=== PATIENT | female | born 1980 | race Caucasian/White ===

== ENCOUNTER 2018-04-05 08:52 | Day surgery (SDC) | payer BC ==
[~2018-04-05 08:52] MED LIST: Lactated Ringers 1,000 ML IV SCH
[2018-04-05] MEDS ORDERED: Acetaminophen 1,000 MG in Premix Bag 1 BAG IV ONE (09:13)
[2018-04-05] MEDS ORDERED: fentaNYL 100 MCG/2 ML SDV ONE (09:18)
[2018-04-05] MEDS ORDERED: Propofol 200 MG/20 ML SDV ONE (09:18)
[2018-04-05] MEDS ORDERED: Midazolam 1 MG/ML 2 ML SDV ONE (09:18)
[2018-04-05] MEDS ORDERED: Lidocaine 2% 100 MG/5 ML Syringe ONE (09:19)
[2018-04-05] MEDS ORDERED: Ketorolac 30 MG/ML SDV ONE (09:19)
[2018-04-05] MEDS ORDERED: Esmolol 100 MG/10 ML SDV ONE (09:19)
[2018-04-05] MEDS ORDERED: Ondansetron 4 MG/2 ML SDV ONE (09:19)
[2018-04-05] MEDS ORDERED: Bupivacaine 0.5%/EPINEPHrine 1:200,000 30 ML SDV ONE (10:37)
[2018-04-05] MEDS ORDERED: ceFAZolin 1 GM Vial ONE (10:55)
[2018-04-05] MEDS ORDERED: Bupivacaine 0.5%/EPINEPHrine 1:200,000 30 ML SDV INFILT ONE ×2 (11:01)
[2018-04-05] MEDS ORDERED: Morphine 2 MG/ML Syringe IVPUSH PRN (12:05)
[2018-04-05] MEDS ORDERED: Acetaminophen/HYDROcodone 325-5 MG Tab PO PRN (12:07)
--- NOTE | 2018-04-05 13:42 | OR ---
PREOP DIAGNOSIS: Umbilical hernia. POSTOP DIAGNOSIS: Umbilical hernia. PROCEDURE PERFORMED: Repair of umbilical hernia. INDICATION: The patient is a 37-year-old female with history of an umbilical hernia, who presents for repair at this time. PROCEDURE DETAILS: Procedure is done in the operating room. General anesthesia administered. The abdomen was prepped and draped in a sterile manner. A 15 blade was used to make a supraumbilical incision. Direct dissection was done down to the fascia and a total of 2 hernia defects were found. The hernia sac was dissected free from both back to the level of fascia, truncated at the fascia level. I opened the 2 hernia defects into one, making one slightly larger defect. I dissected the preperitoneal space in each direction with cautery, placed the 4.3 cm Ventralex patch posterior to the fascia in the preperitoneal space. The 2 tabs were sutured, one superiorly and one inferiorly with 0 nurolon U stitches. The fascia was then reapproximated over the mesh with 0 Ethibond interrupted sutures. Umbilical skin was closed with 3-0 Vicryl interrupted sutures. Skin was closed with running 4-0 Vicryl subcuticular suture and Dermabond. The patient was brought to PACU postop and will be sent home later today. BKD: 04/05/2018 11:49:54 MODL: 04/05/2018 13:32:03 /[id number]
== END 2018-04-05 14:30 | disposition home or self-care (01) ==
LOC: VM.SDS 08:52
PROVIDERS: ATTEND Surgery
DX: K42.9 Umbilical hernia without obstruction or gangrene (principal)
CPT/HCPCS: 81025; A9270-GY; C1781; J0131; J0690; J1885; J2001; J2250; J2270; J2405; J2704; J3010; J3490; J7120

== ENCOUNTER 2019-07-02 09:28 | Emergency (ER) | payer BC, OTHER, SELFPAY ==
[2019-07-02] MEDS ORDERED: Sodium Chloride 0.9% 10 ML Syringe FLUSH PRN (10:19)
--- NOTE | 2019-07-02 10:27 | EDM.PDOC ---
ED HPI GENERAL MEDICAL PROBLEM - General Chief Complaint: Abdominal Pain Time Seen by Provider: 07/02/19 09:35 Source of Information: Reports: Patient History Limitations: Reports: No Limitations - History of Present Illness INITIAL COMMENTS - FREE TEXT/NARRATIVE: Pt. presents to ER with complaints of diffuse abdominal pain that localizes to the RUQ. She states that she developed the discomfort while riding home yesterday. Pt. states that she has felt febrile. No nausea or vomiting. Denies any substernal chest pain or shortness of breath. Pt. states that her last BM was earlier today. She has a history of chronic constipation, and states that her stool today was very hard. She denies any dysuria. She states that her urine is dark today. Pt. denies any definite postprandial component to the discomfort and states that it is always there. Onset: Today Onset Date: 07/02/19 Location: Reports: Abdomen Right Abdomen Pain Score (Numeric/FACES): 5 - Related Data Allergies Allergy/AdvReac Type Severity Reaction Status Date / Time No Known Allergies Allergy Verified 07/02/19 10:03 Home Meds: Home Meds DULoxetine [Cymbalta] 60 mg PO DAILY 07/02/19 [History] Past Medical History Cardiovascular History: Reports: None Respiratory History: Reports: None Gastrointestinal History: Reports: Other (See Below) Other Gastrointestinal History: umbilical hernia Genitourinary History: Reports: None Musculoskeletal History: Reports: None Neurological History: Reports: None Psychiatric History: Reports: Depression Endocrine/Metabolic History: Reports: None Hematologic History: Reports: Other (See Below) Other Hematologic History: Limes Disease Immunologic History: Reports: None Oncologic (Cancer) History: Reports: None Dermatologic History: Reports: None - Past Surgical History Head Surgeries/Procedures: Reports: None HEENT Surgical History: Reports: Oral Surgery Cardiovascular Surgical History: Reports: None GI Surgical History: Reports: None Female Surgical History: Reports: None Musculoskeletal Surgical History: Reports: None Social & Family History - Tobacco Use Smoking Status *Q: Never Smoker - Recreational Drug Use Recreational Drug Use: No ED ROS GENERAL - Review of Systems Review Of Systems: See Below Constitutional: Reports: Fever, Chills HEENT: Reports: No Symptoms Respiratory: Reports: No Symptoms Cardiovascular: Reports: No Symptoms Endocrine: Reports: No Symptoms GI/Abdominal: Reports: Abdominal Pain, Constipation, Flatus. Denies: Anorexia, Black Stool, Bloody Stool, Diarrhea, Distension, Hematemesis, Hematochezia, Melena : Reports: No Symptoms Musculoskeletal: Reports: No Symptoms Skin: Reports: No Symptoms Neurological: Reports: No Symptoms Psychiatric: Reports: No Symptoms Hematologic/Lymphatic: Reports: No Symptoms Immunologic: Reports: No Symptoms ED EXAM, GENERAL - Physical Exam Exam: See Below Exam Limited By: No Limitations General Appearance: Alert, WD/WN, No Apparent Distress Eye Exam: Bilateral Eye: EOMI Head: Atraumatic, Normocephalic Neck: Normal Inspection, Supple, Non-Tender, Full Range of Motion Respiratory/Chest: No Respiratory Distress, Lungs Clear, Normal Breath Sounds, No Accessory Muscle Use, Chest Non-Tender Cardiovascular: Normal Peripheral Pulses, Regular Rate, Rhythm, No Edema, No Gallop, No JVD, No Murmur, No Rub GI/Abdominal: Normal Bowel Sounds, Soft, Non-Tender, No Organomegaly, No Distention, No Mass (Female) Exam: Deferred Rectal (Female) Exam: Deferred Back Exam: Normal Inspection, Full Range of Motion Extremities: Normal Inspection, Normal Range of Motion, No Pedal Edema, Normal Capillary Refill Neurological: Alert, Oriented, CN II-XII Intact, Normal Cognition, Normal Gait, No Motor/Sensory Deficits Psychiatric: Normal Affect, Normal Mood Skin Exam: Warm, Dry, Intact, Normal Color, No Rash Lymphatic: No Adenopathy Course - Vital Signs Last Recorded V/S: Last Vital Signs Temp 37.2 C 07/02/19 09:35 Pulse 89 07/02/19 09:35 Resp 18 07/02/19 09:35 BP 124/71 07/02/19 09:35 Pulse Ox 100 07/02/19 09:35 - Orders/Labs/Meds Orders: Active Orders 24 hr Category Date Time Status Peripheral IV Insertion Adult [OM.PC] Routine Oth 07/02/19 10:20 Ordered Labs: Laboratory Tests 07/02/19 07/02/19 07/02/19 Range/Units 10:06 10:06 10:06 WBC 13.0 H (4.0-10.0) x10^3/uL RBC 4.21 (4.00-5.50) x10^6/uL Hgb 12.8 (12.0-16.0) g/dL Hct 38.6 (33.0-47.0) % MCV 91.7 (78.0-93.0) fL MCH 30.4 (26.0-32.0) pg MCHC 33.2 (32.0-36.0) g/dL RDW Coeff of Rosanna 12.5 (10.0-15.0) % Plt Count 263 (130-400) x10^3/uL Neut % (Auto) 75.4 (50.0-80.0) % Lymph % (Auto) 14.0 L (25.0-50.0) % [place] % (Auto) 9.6 (2.0-11.0) % Eos % (Auto) 0.8 (0.0-4.0) % Baso % (Auto) 0.2 (0.2-1.2) % PT 9.7 L (10.0-12.8) SEC INR 0.9 L (2.0-3.5) Sodium 138 (136-145) mmol/L Potassium 3.9 (3.5-5.1) mmol/L Chloride 101 (98-107) mmol/L Carbon Dioxide 28 (21-32) mmol/L Anion Gap 12.9 (10-20) mmol/L BUN 9 (7-18) mg/dL Creatinine 0.8 (0.55-1.02) mg/dL Est Cr Clr Drug Dosing TNP Estimated GFR (MDRD) > 60 Glucose 105 (74-106) mg/dL Calcium 9.0 (8.5-10.1) mg/dL Corrected Calcium 9.40 (8.5-10.1) mg/dL Total Bilirubin 0.7 (0.2-1.0) mg/dL AST 11 L (15-37) U/L ALT 20 (14-59) U/L Alkaline Phosphatase 65 (46-116) U/L Total Protein 7.2 (6.4-8.2) g/dL Albumin 3.5 (3.4-5.0) g/dL Globulin 3.7 Albumin/Globulin Ratio 0.95 Amylase 104 (25-115) U/L Lipase 131 (73-393) U/L Urine Color (YELLOW) Urine Appearance (CLEAR) Urine pH (5.0-8.0) Ur Specific [place] Urine Protein (NEGATIVE) mg/dL Urine Glucose (UA) (NEGATIVE) mg/dL Urine Ketones (NEGATIVE) mg/dL Urine Occult Blood (NEGATIVE) Urine Nitrite (NEGATIVE) Urine Bilirubin (NEGATIVE) Urine Urobilinogen (0.2) EU/dL Ur Leukocyte Esterase (NEGATIVE) Urine RBC (NOT SEEN) /HPF Urine WBC (NOT SEEN) /HPF Ur Squamous Epith Cells (NEGATIVE) /HPF Urine Bacteria (NEGATIVE) /HPF Urine Mucus (NEGATIVE) /LPF POC Urine HCG, Qual (NEGATIVE) 07/02/19 07/02/19 Range/Units 10:07 10:07 WBC (4.0-10.0) x10^3/uL RBC (4.00-5.50) x10^6/uL Hgb (12.0-16.0) g/dL Hct (33.0-47.0) % MCV (78.0-93.0) fL MCH (26.0-32.0) pg MCHC (32.0-36.0) g/dL RDW Coeff of Rosanna (10.0-15.0) % Plt Count (130-400) x10^3/uL Neut % (Auto) (50.0-80.0) % Lymph % (Auto) (25.0-50.0) % [place] % (Auto) (2.0-11.0) % Eos % (Auto) (0.0-4.0) % Baso % (Auto) (0.2-1.2) % PT (10.0-12.8) SEC INR (2.0-3.5) Sodium (136-145) mmol/L Potassium (3.5-5.1) mmol/L Chloride (98-107) mmol/L Carbon Dioxide (21-32) mmol/L Anion Gap (10-20) mmol/L BUN (7-18) mg/dL Creatinine (0.55-1.02) mg/dL Est Cr Clr Drug Dosing Estimated GFR (MDRD) Glucose (74-106) mg/dL Calcium (8.5-10.1) mg/dL Corrected Calcium (8.5-10.1) mg/dL Total Bilirubin (0.2-1.0) mg/dL AST (15-37) U/L ALT (14-59) U/L Alkaline Phosphatase (46-116) U/L Total Protein (6.4-8.2) g/dL Albumin (3.4-5.0) g/dL Globulin Albumin/Globulin Ratio Amylase (25-115) U/L Lipase (73-393) U/L Urine Color Yellow (YELLOW) Urine Appearance Clear (CLEAR) Urine pH 7.0 (5.0-8.0) Ur Specific [place] 1.015 Urine Protein Negative (NEGATIVE) mg/dL Urine Glucose (UA) Negative (NEGATIVE) mg/dL Urine Ketones Negative (NEGATIVE) mg/dL Urine Occult Blood Negative (NEGATIVE) Urine Nitrite Negative (NEGATIVE) Urine Bilirubin Negative (NEGATIVE) Urine Urobilinogen 0.2 (0.2) EU/dL Ur Leukocyte Esterase Trace H (NEGATIVE) Urine RBC 0-5 (NOT SEEN) /HPF Urine WBC 0-5 (NOT SEEN) /HPF Ur Squamous Epith Cells Few H (NEGATIVE) /HPF Urine Bacteria Not seen (NEGATIVE) /HPF Urine Mucus Not seen (NEGATIVE) /LPF POC Urine HCG, Qual Negative (NEGATIVE) Meds: Medications Discontinued Medications Generic Name Dose Route Start Last Admin Trade Name Freq PRN Reason Stop Dose Admin Piperacillin Sod/Tazobactam 100 mls @ 200 mls/hr 07/02/19 11:38 07/02/19 11: 50 Sod 4.5 gm/ Sodium Chloride IV 07/02/19 12:07 200 mls/hr STAT ONE Administration Iopamidol 100 ml 07/02/19 10:46 07/02/19 10:56 Isovue-300 (61%) IVPUSH 07/02/19 10:47 100 ml ONETIME ONE Administration Sodium Chloride 10 ml 07/02/19 10:19 Saline Flush FLUSH ASDIRECTED PRN Keep Vein Open - Radiology Interpretation Free Text/Narrative:: CT abdomen and pelvis obtained with contrast. Mesenteric inflammation noted of unknown etiology, possible pseudomembranous colitis vs. non-visualized appendicitis. Departure - Departure Time of Disposition: 12:35 Disposition: Home, Self-Care 01 Clinical Impression: Colitis - Discharge Information Instructions: Colitis, Ciprofloxacin tablets, Metronidazole tablets or capsules Referrals: Rhoda Martell DO [Primary Care Provider] - Forms: ED Department Discharge Additional Instructions: Flagyl 500mg 1 tab 3 times daily Cipro 500mg 1 tab twice daily Drink plenty of fluids. You are quite dehydrated. Start Miralax 17 gm once daily. You should stay in this indefinitely due to your constipation. Sepsis Event Note - Evaluation Sepsis Screening Result: No Definite Risk - Focused Exam Vital Signs: Vital Signs Temp Pulse Resp BP Pulse Ox 07/02/19 09:35 37.2 C 89 18 124/71 100 Date Exam was Performed: 07/02/19 Time Exam was Performed: 14:05 - My Orders Last 24 Hours: My Active Orders 07/02/19 10:20 Peripheral IV Insertion Adult [OM.PC] Routine - Assessment/Plan Last 24 Hours: My Active Orders 07/02/19 10:20 Peripheral IV Insertion Adult [OM.PC] Routine Plan: Spoke with Dr. Dasilva, surgeon at [facility] in [place]. Images were reviewed. It is felt that the patient has some colitis of the R ascending colon consistent with colitis. Pt. has not rebound tenderness or rigidity. Pt. will be started on Cipro and flagyl. Pt. has a history of chronic constipation and would benefit for drinking more water and starting miralax. This was discussed with patient. She is to return to ER if she has worsening discomfort. Recheck in clinic in 10-14 days.
[2019-07-02 10:40] LABS: CHLORIDE,CL 101 mmol/L (98-107); SODIUM,NA 138 mmol/L (136-145)
[2019-07-02 10:41] LABS: ANION GAP 12.9 mmol/L (10-20)
[2019-07-02] MEDS ORDERED: Iopamidol 612 MG/ML 100 ML Bottle IVPUSH ONE (10:46)
[2019-07-02] MEDS ORDERED: Piperacillin/Tazobactam 4.5 GM in Sodium Chloride 0.9% 100 ML IV ONE (11:38)
--- NOTE | 2019-07-02 11:41 | CT ---
[id number] CT/CT Abdomen Pelvis W IV EXAM: CT Abdomen Pelvis W IV CLINICAL DATA: ABDOMINAL PAIN COMPARISON: NO PREVIOUS SIMILAR EXAM IS AVAILABLE. FINDINGS: Inflammatory changes are seen in the right mid abdomen The appendix is not seen There is no obvious diverticulitis Differential diagnosis includes pseudomembranous colitis involving the right side of the large intestine Follow-up studies and surgical opinion would be helpful A nonvisualized appendicitis is also a possibility with a retrocecal appendix The gallbladder is contracted The gallbladder wall is unremarkable The liver and spleen, kidneys and adrenals, pancreas and aorta are unremarkable The pelvis shows no mass or adenopathy Report called at time of dictation The endometrium is slightly prominent likely physiologic IMPRESSION: ABNORMAL STUDY INFLAMMATORY CHANGES RIGHT MID ABDOMEN DIFFERENTIAL DIAGNOSIS IS BETWEEN PSEUDOMEMBRANOUS COLITIS VERSUS NONVISUALIZED APPENDICITIS Valentin Moreland MD 07/02/19 [id number] Thank you for allowing us to participate in the care of your patient.
== END 2019-07-02 12:35 | disposition home or self-care (01) ==
LOC: VM.ED 09:28
DX: K52.9 Noninfective gastroenteritis and colitis, unspecified (principal); Z79.899 Other long term (current) drug therapy
CPT/HCPCS: 36415; 74177; 80053; 81001; 81025; 82150; 83690; 85025; 85610; 96365; 99284; J2543; J7050; Q9967